=== PATIENT | male | born 1940 | race Caucasian/White ===

== ENCOUNTER 2016-04-14 20:50 | Emergency (ER) | payer OTHER, BC ==
[2016-04-14 21:31] LABS: BASOPHIL# 0.1 X 10^3uL (0.0-0.1); BASOPHILS 0.5 % (0.0-2.0); EOSINOPHILS 1.3 % (0.0-6.0); EOSINOPHILS# 0.2 X 10^3uL (0.0-0.4); HEMATOCRIT 45.7 % (42.0-54.0); HEMOGLOBIN 15.8 g/dL (14.0-18.0); LYMPHOCYTES 42.9 % (20.0-40.0); MEAN CELL VOLUME 88.9 fL (80.0-100.0); MEAN CORPUS. HGB CONCENTRATION 34.6 g/dL (32.0-36.0); MEAN CORPUSCULAR HEMOGLOBIN 30.7 pg (29.0-35.0); MEAN PLATELET VOLUME 8.8 fL (7.4-10.4); MONOCYTES 10.3 % (2.0-10.0); MONOCYTES# 1.4 X 10^3uL (0.2-1.0); NEUTROPHILS# 5.9 X 10^3uL (2.6-6.7); PLATELET COUNT 212 X 10^3uL (130-440); RED BLOOD COUNT 5.14 X 10^6uL (4.20-6.10); RED CELL DISTRIBUTION WIDTH 12.6 % (11.5-14.5); WHITE BLOOD COUNT 13.4 X 10^3uL (3.9-10.7)
[2016-04-14 21:39] LABS: LYMPHOCYTES# 5.8 X 10^3uL (0.8-3.8)
[2016-04-14 21:49] LABS: BLOOD UREA NITROGEN 19 mg/dL (9-20); CALCIUM 10.6 mg/dL (8.4-10.2); CHLORIDE 104 mmol/L (98-107); EST GLOMERULAR FILTRATION RATE > 60 mL/min; GLUCOSE 57 mg/dL (70-100); POTASSIUM 4.1 mmol/L (3.5-5.1); SODIUM 142 mmol/L (137-145)
[2016-04-14 21:59] LABS: PARTIAL THROMBOPLASTIN TIME 24 sec (24-38)
--- NOTE | 2016-04-14 22:20 | CT REPORT ---
HISTORY: Right arm numbness/slurred speech. COMPARISON: None. TECHNIQUE: Axial non-contrast images obtained from skull vertex through foramen magnum. FINDINGS: There is no evidence of a mass lesion, extra-axial fluid collection or acute hemorrhage. There is n o CT evidence of acute ischemia or infarction. There is age-appropriate cerebral parenchymal volume l oss. Mild/moderate periventricular white matter hypoattenuation is compatible with chronic small vess el ischemic change. The ventricles and sulci are normal in appearance. The visualized portions of the orbits and paranasal sinuses are normal in appearance. IMPRESSION: 1. No CT evidence of acute intracranial abnormalities. 2. Mild/moderate periventricular white matter hypoattenuation is compatible with chronic small vesse l ischemic change. COMMUNICATION: Dr. Nikole Holm discussed the pertinent results with Dr. Wright at 04/14/2016 10:17 PM. Final Electronic Signature: This report was electronically signed by Panchito Holm MD on 10:18 PM. wei /
--- NOTE | 2016-04-14 22:49 | ER NURSING DOCUMENTATION ---
Nurse's Notes [facility] Name:Sharath Coon Age:75 yrs Sex:Male :1940 Arrival Date:04/14/2016 Time:20:50 BedTrauma A Private MD:Jeff Burch Diagnosis:Low Blood Sugar (Hypoglycemia);Carotid TIA Presentation: 04/14 21:05 Notified ED Physician of Dr. Wright notified. lb 21:05 Acuity: BANDAR 2 lb 21:39 Presenting complaint: Patient states: slurred speech, right hand weakness for 20 lb minutes. glucose on scene 59 per ems. symptoms resolved on arrival to ed. Transition of care: Home. Care prior to arrival: Labs. 21:39 Method Of Arrival: EMS: 410 lb Triage Assessment: 21:45 General: Appears in no apparent distress, Behavior is appropriate for age, cooperative. lb Pain: Denies pain. Neuro: Level of Consciousness is awake, alert, Oriented to person, place, time, event, Raker Buffing Wheel are equal bilaterally Moves all extremities. Speech is normal, Facial symmetry appears normal, Pupils are PERRLA. Historical: - Allergies: No known drug Allergies; - Home Meds: 1. Simvastatin Oral 2. Metformin Oral 3. Lisinopril Oral 4. levothyroxine oral 5. levimir 6. Novolog Sub-Q - PMHx: Diabetes - NIDDM; Hypertension; HYPOTHYROIDISM; hyperlipidemia; - PSHx: None; - Tetanus: unknown. - Ebola Screening: : Patient negative for fever greater than or equal to 101.5 degrees Fahrenheit, and additional compatible Ebola Virus Disease symptoms. Patient denies exposure to infectious person. - Immunization history: Flu Vaccine None. - Social history: Smoking status: Patient states was never smoker of tobacco. Patient uses alcohol only on a social basis. Screenin:47 Infectious Disease Risk None. Abuse screen: Denies threats or abuse. Denies injuries lb from another. Nutritional screening: No deficits noted. Assessment: 21:46 See Triage Assessment done by same RN. lb Vital Signs: 21:45 BP 167 / 74; Pulse 86; Resp 18; Temp 98.7; Pulse Ox 94% on R/A; Weight 81.65 kg; Height lb 5 ft. 8 in. (172.72 cm); Pain 0/10; 22:04 BP 138 / 62; Pulse 85; Resp 17; Pulse Ox 97% on NC; Pain 0/10; lb 21:45 Body Mass Index 27.37 (81.65 kg, 172.72 cm) lb NIH Stroke Scale Scores: 21:50 NIHSS Score: 0 lb ED Course: 09:[address] hz 09:[address] hz 20:52 Patient arrived in ED. ma1 20:52 Jeff Burch MD is Private Physician. ma1 21:05 Laura Garrett is Primary Nurse. lb 21:05 Triage completed. lb 21:21 Juan Wright MD is Attending Physician. sc 21:[address] Wright notified. lb 21:47 Maintain field IV. Dressing intact. Site clean & dry. Gauge & site: #20 left ac. Oxygen lb Oxygen administration via nasal cannula @ 2L/min. 21:47 Valuables Remains with patient Patient has correct armband on for positive lb identification. Placed in gown. Bed in low position. Call light in reach. Side rails up X2. 21:49 EKG done. (by ED staff). lb 21:49 court monitor on. Pulse ox on. NIBP on. lb 22:29 EKG attached lb 22:34 Jeff Burch MD is Referral Physician. sc Administered Medications: No medications were administered Point of Care Testing: Blood Glucose: 21:45 Blood Glucose: 70 mg/dL; lb 22:25 Blood Glucose: 84 mg/dL; fc 22:25 Approx. 30 min after 4 david crackers, peanut butter, and 8 oz 2% milk. fc Ranges: Outcome: 22:34 Discharge ordered by . sc 22:48 Discharged to home ambulatory. lb 22:48 Condition: good 22:48 Discharge Assessment: Patient awake, alert and oriented x 3. No cognitive and/or functional deficits noted. Patient verbalized understanding of disposition instructions. 22:48 Instructed on discharge instructions, follow up and referral plans. 22:48 IV D/Scooby 22:48 Patient left the ED. NIH Stroke Scale - NIH Stroke Score Date: 04/14/2016 Time: 21:50 Total Score = 0 1a. Level of Consciousness (LOC) - 0(Alert) 1b. Level of Consciousness (LOC) (Year & Age) - 0(Both) 1c. LOC Commands (Open & Closes Eyes/Bicycle Messenger) - 0(Both) 2. Best Gaze (Lateral Gaze Paresis) - 0(Normal) 3. Visual Field Loss - 0(No visual loss) 4. Facial Palsy - 0(Normal) 5a. Left Arm: Motor (10-second hold) - 0(No drift) 5b. Right Arm: Motor (10-second hold) - 0(No drift) 6a. Left Leg: Motor (5-second hold ? always test supine) - 0(No drift) 6b. Right Leg: Motor (5-second hold ? always test supine) - 0(No drift) 7. Limb Ataxia (finger/nose & heel/de [place] ve[place] ? test with eyes open) - 0(Absent) 8. Sensory Loss (pinprick arms/legs/face) - 0(Normal) 9. Best Language: Aphasia (description/naming/reading) - 0(No aphasia) 10. Dysarthria (speech clarity ? read or repeat words) - 0(Normal) 11. Extinction and Inattention (visual/tactile/auditory/spatial/personal) - 0(No abnormality) Initials: lb Signatures: Juan Wright MD MD sc collins, Laura Sandoval Heather hz Addison, Shirley atkins
--- NOTE | 2016-04-14 22:49 | ER PHYSICIAN DOCUMENTATION ---
Physician Documentation [facility] Name:Sharath Coon Age:75 yrs Sex:Male :1940 Arrival Date:04/14/2016 Time:20:50 BedTrauma A Private MD:Jeff Burch ED Juan Wright Disposition: 04/14/16 22:34 Discharged to Home/Self Care. Impression: Low Blood Sugar (Hypoglycemia), Carotid TIA. - Condition is Good. - Discharge Instructions: HYPOGLYCEMIA, Oral Agents, TIA. - Medical Reconciliation form form. - Follow up: Jeff Burch MD; When: 1 - 2 days; Reason: Continuance of care. - Problem is new. - Symptoms are resolved. HPI: 04/14 22:29 This 75 yrs old Male presents to ER via EMS with complaints of Altered Mental sc Status. 22:29 The patient presents to the emergency department with weakness of the right upper sc extremity, that is mild, a speech or higher order brain function problem, slurred. Onset: The symptom(s)/episode began/occurred 1 hour(s) ago. Context: occurred at home, occurred while the patient was at rest. Associated signs and symptoms: The patient has no apparent associated signs or symptoms. Severity of symptoms: At their worst the symptoms were mild. Patient's baseline: Neuro: alert and fully oriented, Motor: no deficits. Current symptoms: Currently, the patient is not experiencing any symptoms, the patient feels back to baseline. Risk factors for stroke or transient ischemic attack: diabetes mellitus. Historical: - Allergies: No known drug Allergies; - Home Meds: 1. Simvastatin Oral 2. Metformin Oral 3. Lisinopril Oral 4. levothyroxine oral 5. levimir 6. Novolog Sub-Q - PMHx: Diabetes - NIDDM; Hypertension; HYPOTHYROIDISM; hyperlipidemia; - PSHx: None; - Tetanus: unknown. - Ebola Screening: : Patient negative for fever greater than or equal to 101.5 degrees Fahrenheit, and additional compatible Ebola Virus Disease symptoms. Patient denies exposure to infectious person. - Immunization history: Flu Vaccine None. - Social history: Smoking status: Patient states was never smoker of tobacco. Patient uses alcohol only on a social basis. ROS: 22:30 Constitutional: Negative for fever, chills, and weight loss. sc Eyes: Negative for injury, pain, redness, and discharge. ENT: Negative for injury, pain, and discharge. Neck: Negative for injury, pain, and swelling. Cardiovascular: Negative for chest pain, palpitations, and edema. Respiratory: Negative for shortness of breath, cough, wheezing, and pleuritic chest pain. Abdomen/GI: Negative for abdominal pain, nausea, vomiting, diarrhea, and constipation. Back: Negative for injury and pain. MS/Extremity: Negative for injury and deformity. 22:30 Skin: Negative for injury, rash, and discoloration. sc 22:30 Neuro: Positive for speech changes, weakness. Exam: Constitutional: This is a well developed, well nourished patient who is awake, alert, and in no acute distress. Head/Face: Normocephalic, atraumatic. Eyes: Pupils equal round and reactive to light, extra-ocular motions intact. Lids and lashes normal. Conjunctiva and sclera are non-icteric and not injected. Cornea within normal limits. Periorbital areas with no swelling, redness, or edema. ENT: Nares patent. No nasal discharge, no septal abnormalities noted. Tympanic membranes are normal and external auditory canals are clear. Oropharynx with no redness, swelling, or masses, exudates, or evidence of obstruction, uvula midline. Mucous membranes moist. Neck: Trachea midline, no thyromegaly or masses palpated, and no cervical lymphadenopathy. Supple, full range of motion without nuchal rigidity, or vertebral point tenderness. No meningismus. Chest/axilla: Normal chest wall appearance and motion. Nontender with no deformity. No lesions are appreciated. Cardiovascular: Regular rate and rhythm with a normal S1 and S2. No gallops, murmurs, or rubs. Normal PMI, no JVD. No pulse deficits. Respiratory: Lungs have equal breath sounds bilaterally, clear to auscultation and percussion. No rales, rhonchi or wheezes noted. No increased work of breathing, no retractions or nasal flaring. Abdomen/GI: Soft, non-tender, with normal bowel sounds. No distension or tympany. No guarding or rebound. No evidence of tenderness throughout. Back: No spinal tenderness. No costovertebral tenderness. Full range of motion. 22:31 Skin: Warm, dry with normal turgor. Normal color with no rashes, no lesions, and no sc evidence of cellulitis. 22:31 Neuro: Orientation: is normal, Mentation: is normal, Memory: is normal, Cranial nerves: CN II- XII are normal as tested, Cerebellar function: is grossly normal, Motor: is normal, Sensation: is normal, Gait: is steady. 22:34 Eyes: Pupils: equal, round, and reactive to light and accomodation. sc 22:34 Cardiovascular: Rate: normal, Rhythm: regular. Vital Signs: 21:45 BP 167 / 74; Pulse 86; Resp 18; Temp 98.7; Pulse Ox 94% on R/A; Weight 81.65 kg; Height lb 5 ft. 8 in. (172.72 cm); Pain 0/10; 22:04 BP 138 / 62; Pulse 85; Resp 17; Pulse Ox 97% on NC; Pain 0/10; lb 21:45 Body Mass Index 27.37 (81.65 kg, 172.72 cm) lb NIH Stroke Scale Scores: 21:50 NIHSS Score: 0 lb MDM: 21:21 Patient medically screened. sc 22:29 EKG attached lb 22:31 Neurological re-evaluation: normal neurological exam including cranial nerves, sc orientation, mentation, motor and sensory exam, cerebellar testing, GCS normal, and normal gait. The patient was last known to be well at April 14, 2016 at 21:00. Thrombolytics: No thrombolytic given due to CT findings due to patient's history. Data reviewed: vital signs, nurses notes, old medical records, lab test result(s), EKG, radiologic studies, CT scan, and as a result, I will continue to observe the patient. Counseling: I had a detailed discussion with the patient and/or guardian regarding: the historical points, exam findings, and any diagnostic results supporting the discharge/admit diagnosis, lab results, radiology results, the need for outpatient follow up, for a referral to a specialist, with the patient's primary care provider. ECG:. ED course: blood sugar 57, very low for patient, no cause determined, aldo po, repeat 84 and family and pt will check more frequently, patient has endocrinology f/u on 6th, will track blood sugars, consider TIA garcia through pcp. 04/14 21:39 Order name: CBC AUTO DIF, MDIF/RMOR IF IND; Complete Time: 22:07 EDMS 04/14 21:48 Interpretation: Abnormal: WHITE BLOOD COUNT 13.4. co 04/14 21:51 Order name: BASIC METABOLIC PANEL; Complete Time: 22:07 EDMS 04/14 22:07 Interpretation: Abnormal: GLUCOSE 57; CALCIUM 10.6. co 04/14 22:01 Order name: PROTIME; Complete Time: 22:07 EDMS 04/14 22:07 Interpretation: Normal. co 04/14 22:01 Order name: PARTIAL THROMBOPLASTIN TIME; Complete Time: 22:07 EDMS 04/14 22:07 Interpretation: Normal. co 04/14 22:23 Order name: CAT SCAN; HEAD W/O CON [id number] EDCA 04/14 21:06 Order name: 12-lead EKG; Complete Time: 21:17 lb 04/14 21:06 Order name: Continuous Cardiac Monitoring; Complete Time: 21:17 lb 04/14 21:06 Order name: I & O; Complete Time: 21:17 lb 04/14 21:06 Order name: NIH Stroke Scale; Complete Time: 22:47 lb 04/14 21:06 Order name: NPO; Complete Time: 21:20 lb 04/14 21:06 Order name: Oxygen; Complete Time: 21:17 lb 04/14 21:06 Order name: Pulse Ox Continuous; Complete Time: 21:17 lb EC:31 Rate is 81 beats/min. Rhythm is regular. QRS [place] is Normal. AL interval is normal. QRS sc interval is normal. QT interval is normal. No Q waves. T waves are Normal. No ST changes noted. Clinical impression: Normal ECG. Interpreted by me. Reviewed by me. Dispensed Medications: No medications were administered Point of Care Testing: Blood Glucose: 21:45 Blood Glucose: 70 mg/dL; lb 22:25 Blood Glucose: 84 mg/dL; fc 22:25 Approx. 30 min after 4 david crackers, peanut butter, and 8 oz 2% milk. fc Ranges: Critical Glucose Levels:Adult <50 mg/dl or >400 mg/dl <40 mg/dl or >180 mg/dl NIH Stroke Scale - NIH Stroke Score Date: 04/14/2016 Time: 21:50 Total Score = 0 1a. Level of Consciousness (LOC) - 0(Alert) 1b. Level of Consciousness (LOC) (Year & Age) - 0(Both) 1c. LOC Commands (Open & Closes Eyes/Excellence Leader) - 0(Both) 2. Best Gaze (Lateral Gaze Paresis) - 0(Normal) 3. Visual Field Loss - 0(No visual loss) 4. Facial Palsy - 0(Normal) 5a. Left Arm: Motor (10-second hold) - 0(No drift) 5b. Right Arm: Motor (10-second hold) - 0(No drift) 6a. Left Leg: Motor (5-second hold ? always test supine) - 0(No drift) 6b. Right Leg: Motor (5-second hold ? always test supine) - 0(No drift) 7. Limb Ataxia (finger/nose & heel/de [place] ? test with eyes open) - 0(Absent) 8. Sensory Loss (pinprick arms/legs/face) - 0(Normal) 9. Best Language: Aphasia (description/naming/reading) - 0(No aphasia) 10. Dysarthria (speech clarity ? read or repeat words) - 0(Normal) 11. Extinction and Inattention (visual/tactile/auditory/spatial/personal) - 0(No abnormality) Initials: lb Signatures: Juan Wright MD MD sc Bollock, Lynda lb
== END 2016-04-14 22:49 | disposition home or self-care (01) ==
LOC: ER 20:50
DX: E11.649 Type 2 diabetes mellitus with hypoglycemia without coma (principal); G45.8 Other transient cerebral ischemic attacks and related syndromes; R47.81 Slurred speech; R53.1 Weakness; R20.2 Paresthesia of skin; I10 Essential (primary) hypertension; Z79.899 Other long term (current) drug therapy; Z79.4 Long term (current) use of insulin; Z74.3 Need for continuous supervision
CPT/HCPCS: 70450; 80048; 85025; 85610; 85730; 93005; 99285; A0425; A0427